=== PATIENT | male | born 1985 | race Native Hawaiian/Other Pacific Islander ===

== ENCOUNTER 2017-05-02 05:29 | Emergency (ER) | payer OTHER ==
[2017-05-02 06:42] LABS: Basophils % (Auto) 0.7 % (0.0-1.8); Eosinophils % (Auto) 4.7 % (0.0-4.3); Hematocrit 45.8 % (35.5-45.6); Hemoglobin 15.7 gm/dl (11.8-15.2); Mean Corpuscular HGB Conc 34 % (32-34); Mean Corpuscular Hemoglobin 30 pg (28-32); Mean Corpuscular Volume 88 fl (84-94); Platelet Count 308 K/mm3 (140-440); Red Blood Count 5.22 M/mm3 (3.65-5.03); Red Cell Distribution Width 13.1 % (13.2-15.2); White Blood Count 9.4 K/mm3 (4.5-11.0)
[2017-05-02 06:50] LABS: BUN/Creatinine Ratio 18.88; Blood Urea Nitrogen 17 mg/dL (9-20); Calcium 8.9 mg/dL (8.4-10.2); Carbon Dioxide 25 mmol/L (22-30); Glucose 135 mg/dL (75-100); Sodium 138 mmol/L (137-145)
[2017-05-02 06:51] LABS: Anion Gap 19 mmol/L; Chloride 97.6 mmol/L (98-107); Potassium 3.5 mmol/L (3.6-5.0)
[2017-05-02] MEDS ORDERED: ALUM-MAG HYDROX-SIMETH 200-200-20MG/5ML PO ONE (08:40)
[2017-05-02] MEDS ORDERED: LIDOCAINE VISCOUS 2% PO ONE (08:40)
[2017-05-02] MEDS ORDERED: DUONEB 0.5 MG-3 MG/3 ML SOLN IH ONE ×2 (08:40→10:53)
--- NOTE | 2017-05-02 08:42 | Emergency Department Report ---
HPI - General Chief Complaint: Chest Pain Time Seen by Provider: 05/02/17 08:11 - HPI HPI: This is a 31-year-old male presents emergency Department with complaint of waking up this morning with phlegm in the throat, a cough and some feelings of shortness of breath. He denies any chest pain, fever, back pain, nausea, vomiting. He does not have any past medical history. He does not have a primary care doctor. He did not take anything for symptoms prior to presentation. He denies tobacco use. He says that he does not have a sore throat but the phlegm appears to be in the throat and causes him to have some trouble talking with a raspy voice. ED Past Medical Hx - Past Medical History Previous Medical History?: No - Surgical History Past Surgical History?: No - Social History Smoking Status: Never Smoker Substance Use Type: None - Medications Home Medications: Home Medications Medication Instructions Recorded Confirmed Last Taken Type ALBUTEROL Inhaler [ProAir HFA 2 puff IH QID PRN #1 inhalation 05/02/17 Unknown Rx Inhaler] Pseudoephedrine ER [Sudafed 12 Hr] 120 mg PO BID PRN #12 tablet.er 05/02/17 Unknown Rx ED Review of Systems ROS: Stated complaint: NASAL CONGESTION Other details as noted in HPI Comment: All other systems reviewed and negative Constitutional: denies: chills, fever Eyes: denies: eye pain, eye discharge, vision change ENT: congestion. denies: ear pain, dental pain Respiratory: cough, shortness of breath Cardiovascular: denies: chest pain, palpitations Gastrointestinal: denies: abdominal pain, nausea, diarrhea Genitourinary: denies: urgency, dysuria Musculoskeletal: denies: back pain, joint swelling, arthralgia Skin: denies: rash, lesions Neurological: denies: headache, weakness, paresthesias Physical Exam - Physical Exam Vital Signs: Vital Signs 05/02/17 05/02/17 05/02/17 05:49 07:49 07:54 Temperature 98.2 F 97.8 F Pulse Rate 88 69 Respiratory 20 16 16 Rate Blood Pressure 142/92 Blood Pressure 124/86 [Right] O2 Sat by Pulse 98 97 97 Oximetry Physical Exam: GENERAL: The patient is well-developed well-nourished. HEENT: Normocephalic. Atraumatic. Extraocular motions are intact. Patient has moist mucous membranes. Pupils equal reactive to light bilaterally. Posterior pharynx has some cobblestoning appearance but otherwise there is no tonsillar hypertrophy, erythema or exudates. NECK: Supple. Trachea is midline. CHEST/LUNGS: Clear to auscultation. There is an occasional cough heard during examination. No tachypnea or accessory muscle use. There is no respiratory distress noted. HEART/CARDIOVASCULAR: Regular. There is no tachycardia. There is no gallop rub or murmur. ABDOMEN: Abdomen is soft, nontender. Patient has normal bowel sounds. There is no abdominal distention. SKIN: Skin is warm and dry. NEURO: The patient is awake, alert, and oriented. The patient is cooperative. The patient has no focal neurologic deficits. The patient has normal speech. MUSCULOSKELETAL: There is no tenderness or deformity. There is no limitation range of motion. There is no evidence of acute injury. ED Course Vital Signs 05/02/17 05/02/17 05/02/17 05:49 07:49 07:54 Temperature 98.2 F 97.8 F Pulse Rate 88 69 Respiratory 20 16 16 Rate Blood Pressure 142/92 Blood Pressure 124/86 [Right] O2 Sat by Pulse 98 97 97 Oximetry ED Medical Decision Making - Lab Data Result diagrams: 05/02/17 06:25 05/02/17 06:25 - EKG Data -: EKG Interpreted by Me EKG shows normal: sinus rhythm, axis, intervals, QRS complexes, ST-T waves Rate: normal - EKG Data When compared to previous EKG there are: previous EKG unavailable Interpretation: normal EKG - Radiology Data Radiology results: image reviewed interpreted by me: Chest x-ray did not show any acute process. Heart is normal shape and size. No effusions. No pneumothorax. No signs of pneumonia seen. - Medical Decision Making 31-year-old male presents with one-day history of phlegm in the throat and head congestion as well as a cough and some intermittent shortness of breath. The patient does not appear in any acute distress. Normal setting heart and lungs to auscultation. EKG does not show any signs of ST elevation [place] , ischemia or dysrhythmia. The patient is not having any chest pain. Chest x- ray does not show any pneumonia, pleural effusions or any acute process. His labs been unremarkable including no leukocytosis, electrolyte abnormalities, renal insufficiency and negative troponins 2. Not only is the patient not having any chest pain or any tachycardia but he is low on the Wells score criteria and negative on the pulmonary embolism rule out criteria. Patient most likely has an upper respiratory infection. Vital signs stable throughout his ED course including being afebrile. He will be prescribed an albuterol inhaler and decongested and he was given multiple referrals for primary care clinics. He's been encouraged to return to the emergency department with any worsening of symptoms or any acute distress. - Differential Diagnosis URI, pneumonia, sinusitis, asthma Critical Care Time: No Critical care attestation.: If time is entered above; I have spent that time in minutes in the direct care of this critically ill patient, excluding procedure time. ED Disposition Clinical Impression: Upper respiratory infection Qualifiers: URI type: unspecified URI Qualified Code(s): J06.9 - Acute upper respiratory infection, unspecified Disposition: DISCHARGED TO HOME OR SELFCARE Is pt being admited?: No Condition: Stable Instructions: Upper Respiratory Infection (ED) Additional Instructions: Please follow-up with a primary care physician in the next few days. Return to the emergency department with any worsening of your symptoms or any acute distress. Prescriptions: ALBUTEROL Inhaler [ProAir HFA Inhaler] 2 puff IH QID PRN #1 inhalation PRN Reason: Shortness Of Breath Pseudoephedrine ER [Sudafed 12 Hr] 120 mg PO BID PRN #12 tablet.er PRN Reason: Congestion Referrals: [facility] [Outside] - 3-5 Days [facility] [Outside] - 3-5 Days [facility] [Outside] - 3-5 Days [facility] [Outside] - 3-5 Days Time of Disposition: 11:28
--- NOTE | 2017-05-02 09:48 | XRay Report ---
ROUTINE CHEST, TWO VIEWS: HISTORY: Shortness of breath, cough. No comparison. There is poor inspiration with mild hypoventilatory changes in the lower lobes. No convincing pneumonia, pleural effusion or pneumothorax. Normal heart and mediastinal structures. Normal bony thorax. IMPRESSION: Poor inspiration. No acute cardiopulmonary process appreciated.
[2017-05-02 11:11] VITALS: BP 115/77
== END 2017-05-02 11:42 | disposition home or self-care (01) ==
LOC: ED 05:29
DX: J06.9 Acute upper respiratory infection, unspecified (principal)
CPT/HCPCS: 36415; 71020; 80048; 84484; 85025; 93005; 93010; 94640